=== PATIENT | male | born 1965 | race Caucasian/White ===

== ENCOUNTER → 2019-12-05 | Outpatient (CLI) | payer BC ==
--- NOTE | 2019-12-05 22:09 | CONS ---
CONSULTATION DATE OF SERVICE: 12/05/2019 54-year-old gentleman who has been evaluated in the Sleep Center for possible obstructive sleep apnea-hypopnea syndrome. HISTORY OF PRESENT ILLNESS/SLEEP WAKE EVALUATION: Patient's usual sleep schedule on working days from around 10:00 pm until 6 a.m. and on weekends from 10 p.m. to 7 a.m. No problems with falling asleep. No TV in bedroom. Patient usually sleeps on the side position. According to his . He has loud snoring and has episodes of stopped breathing during sleep. He wakes up from sleep once with nocturia. No history of hypnagogic hallucinations, sleep paralysis or cataplexy. Sometimes the patient feels that his mouth is dry during the sleep, possibly he opens his mouth during the sleep. He drinks 2 caffeinated beverages in the morning. He usually does not take any naps. [place] Sleepiness Scale is 7. PAST MEDICAL HISTORY: Positive for hyperlipidemia, anxiety, hypothyroidism. PAST SURGICAL HISTORY: None. SOCIAL HISTORY: Negative for smoking. Alcohol consumption occasional. FAMILY HISTORY: Positive for sleep apnea by his mother, heart problems, thyroid problems in the family. MEDICATIONS: Simvastatin, citalopram, levothyroxine. REVIEW OF SYSTEMS: Some awakenings from sleep, sometimes feeling sleepy during the day as the passenger on the car or afternoon after lunch. PHYSICAL EXAM: gentleman without distress. BP 128/67, HR 62, RR 16, height 6 feet and 1/3 inches, weight 231 pounds. Body mass index 31.0, temperature 97.7, oxygen saturation at room air 96%. Oropharynx: Low position of soft palate, Mallampati 3, wide pillars, wide neck 18.5 inches in circumference. Nose symmetric. Possibly nasal septum deviation. NECK: Supple, no JVD. Thyroid is not palpable. LUNGS: Clear to percussion and to auscultation. Good air exchange. No wheezing or rhonchi. HEART: S1, S2 regular. No murmurs, gallops, or rubs. ABDOMEN: Obese. Soft and nontender. Bowel sounds are present. No organomegaly appreciated. EXTREMITIES: No clubbing or cyanosis. RUBBER GOODS INSPECTOR TESTER: Awake, alert, and oriented X3. Cranial nerves 2 to 7 intact. There is no fasciculation or atrophy. noted. No focal deficits observed. IMPRESSION: 1. Snoring, witnessed episodes of stopped breathing during sleep. Small oropharyngeal air space. Wide neck; obstructive sleep apnea-hypopnea syndrome. 2. Obesity, BMI 31.0. 3. History of anxiety. 4. Hyperlipidemia. 5. Hypothyroidism. 6. Some asymmetry of the nose, possibly nasal septum deviation. PLAN: 1. Polysomnography for evaluation of patient's breathing during sleep. 2. CPAP/BiPAP titration if sleep study confirms obstructive sleep apnea-hypopnea syndrome. 3. Preferable position during sleep on the side. 4. No driving if patient feels any sleepiness. 5. I will see patient for follow up visit to explain results of testing and following plan. Thank you very much for referring this patient for consultation. Sincerely, Charan Lamb MD, PhD, FAASM Diplomat of [place] [employer] Specialties [place] Board of Internal Medicine Archives Director of [facility] [place] MMODL / FOREIGNN: [phone] /
== END | disposition home or self-care (01) ==
LOC: SLEEP 14:30
PROVIDERS: ATTEND Internal Medicine
DX: G47.33 Obstructive sleep apnea (adult) (pediatric) (principal); E66.9 Obesity, unspecified; E78.5 Hyperlipidemia, unspecified; E03.9 Hypothyroidism, unspecified; Q30.8 Other congenital malformations of nose; Z68.31 Body mass index [BMI] 31.0-31.9, adult; Z86.59 Personal history of other mental and behavioral disorders; Z79.890 Hormone replacement therapy; Z79.899 Other long term (current) drug therapy
CPT/HCPCS: 99211

== ENCOUNTER → 2020-07-02 | Outpatient (CLI) | payer BC ==
--- NOTE | 2020-07-02 23:04 | SFUN ---
SLEEP CENTER FOLLOW UP NOTE DATE OF SERVICE: 07/02/2020 This patient is a 55-year-old gentleman who has been followed in Sleep Center for treatment of obstructive sleep apnea-hypopnea syndrome. Recently the patient had a sleep study which showed extremely severe obstructive sleep apnea. Then the patient had CPAP titration and was started on treatment with CPAP. Today is his first visit on treatment with CPAP. He reported that he feels better with the machine, sleeps better, feels better during the day. [place] Sleepiness Scale is 4, which is normal. I checked his CPAP unit. CPAP pressure is 11 cm of water. Usage is /30 nights; 17/30 nights for more than 4 hours, with average usage 5.3 hours per night. Leak is 17 L/minute, which is borderline. Apnea-hypopnea index was 2.8, which is in normal range. MEDICATIONS: Simvastatin, levothyroxine, citalopram. PHYSICAL EXAMINATION: GENERAL: A pleasant patient in no distress. VITAL SIGNS: BP 118/74, HR 76, RR 16, weight 237, temperature 98.0, oxygen saturation at room air 97%. HEENT: PERRLA, EOMI. Evaluation of oropharynx showed tongue protrudes midline. low position of soft palate. NECK: Supple. No JVD. Thyroid is not palpable. LUNGS: Clear to percussion and to auscultation. Good air exchange. No wheezing or rhonchi. HEART: S1, S2 regular. No murmurs, gallops or rubs. ABDOMEN: Obese. EXTREMITIES: No clubbing or cyanosis. GUIDANCE DIRECTOR: Awake, alert, and oriented X3. Cranial nerves 2 to 7 intact. There is no fasciculation or atrophy. noted. No focal deficits observed. IMPRESSION: 1. Extremely severe obstructive sleep apnea-hypopnea syndrome with central apneas, controlled with CPAP at 11 cm of water. 2. Obesity. 3. Periodic limb movements during titration. Presently no complaints of leg movements. 4. Hyperlipidemia. 5. Hypothyroidism. 6. History of anxiety. PLAN: 1. Patient will continue to use PAP equipment every night for the whole night. 2. Sleep hygiene with regular time in bed for at least 7-1/2 to 8 hours. 3. Precautions related to driving. No driving if feeling sleepiness. 4. I will maintain all necessary prescription for PAP supplies including mask, tube, filters. 5. Watching weight. 6. No driving if feeling sleepiness. 7. Follow-up visit in 6 months or earlier if patient has any problems. Thank you very much for allowing me to participate in the management of your patient. Sincerely, Charan Lamb MD, PhD, FAASM Diplomat of [place] [employer] Specialties [employer] Board of Internal Medicine Steel Wheel Engraver of [facility] [place] MMNAOMIEL / PETER: [id number] /
== END | disposition home or self-care (01) ==
LOC: SLEEP 14:08
PROVIDERS: ATTEND Internal Medicine
DX: G47.33 Obstructive sleep apnea (adult) (pediatric) (principal); G47.61 Periodic limb movement disorder; Z99.89 Dependence on other enabling machines and devices; E66.9 Obesity, unspecified; E78.5 Hyperlipidemia, unspecified; E03.9 Hypothyroidism, unspecified; Z86.59 Personal history of other mental and behavioral disorders

== ENCOUNTER → 2020-12-31 | Outpatient (CLI) | payer BC ==
--- NOTE | 2020-12-31 20:00 | SFUN ---
SLEEP CENTER FOLLOW UP NOTE DATE OF SERVICE: 12/31/2020 This 55-year-old gentleman has been followed in Sleep Center for treatment of obstructive sleep apnea-hypopnea syndrome. The patient has extremely severe sleep apnea and he continues to use his CPAP equipment every night for the whole night. No snoring with the machine. [place] Sleepiness Scale today is 7, which is normal. I checked his CPAP unit. CPAP pressure is 11 cm of water, usage 29/30 nights for more than 4 hours, average 6.3 hours per night. Leak is 11 L/minute, which is acceptable. Apnea-hypopnea index is 2.3, which is normal. MEDICATIONS: Simvastatin, levothyroxine, citalopram. PHYSICAL EXAMINATION: GENERAL: A pleasant patient in no distress. VITAL SIGNS: BP 126/74, HR 58, RR 18, height 6 feet 1 inch, weight 236, BMI 31.1, temperature 98.1, oxygen saturation at room air 95%. HEENT: PERRLA, EOMI. Evaluation of oropharynx showed tongue protrudes midline. Low position of soft palate. NECK: Supple. No JVD. Thyroid is not palpable. LUNGS: Clear to percussion and to auscultation. Good air exchange. No wheezing or rhonchi. HEART: S1, S2 regular. No murmurs, gallops or rubs. ABDOMEN: Slightly obese. EXTREMITIES: No clubbing or cyanosis. MATHEMATICS PROFESSOR: Awake, alert, and oriented X3. Cranial nerves 2 to 7 intact. There is no fasciculation or atrophy. noted. No focal deficits observed. IMPRESSION: 1. Obstructive sleep apnea-hypopnea syndrome. The patient demonstrated close to 100% compliance with treatment, benefitting from treatment. 2. Obesity. 3. Hypothyroidism. 4. Hyperlipidemia. 5. History of anxiety. 6. Periodic limb movements during titration. Clinically no symptoms of periodic limb movements at the present time. PLAN: 1. Patient will continue to use PAP equipment every night for the whole night. 2. Sleep hygiene with regular time in bed for at least 7-1/2 to 8 hours. 3. Precautions related to driving. No driving if feeling sleepiness. 4. I will maintain all necessary prescription for PAP supplies including mask, tube, filters. 5. Watching weight. 6. No driving if feeling sleepiness. 7. Follow-up visit in 6 months or earlier if patient has any problems. Thank you very much for allowing me to participate in the management of your patient. Sincerely, Charan Lamb MD, PhD, FAASM Diplomat of [place] Board of Medical Specialties [employer] Board of Internal Medicine Lode Miner of [facility] [place] ANASTASIIA / PETER: [phone] /
== END | disposition home or self-care (01) ==
LOC: SLEEP 10:57
PROVIDERS: ATTEND Internal Medicine
DX: G47.33 Obstructive sleep apnea (adult) (pediatric) (principal); E66.9 Obesity, unspecified; E03.9 Hypothyroidism, unspecified; G47.61 Periodic limb movement disorder; E78.5 Hyperlipidemia, unspecified; Z79.890 Hormone replacement therapy; Z86.59 Personal history of other mental and behavioral disorders; Z79.899 Other long term (current) drug therapy; Z99.89 Dependence on other enabling machines and devices

== ENCOUNTER → 2021-07-15 | Outpatient (CLI) | payer BC ==
--- NOTE | 2021-07-15 12:13 | SFUN ---
SLEEP CENTER FOLLOW UP NOTE DATE OF SERVICE: 07/15/2021 INTERVAL HISTORY: A 56-year-old gentleman has been followed in the Sleep Center for treatment of obstructive sleep apnea-hypopnea syndrome. The patient continues to use CPAP equipment every night for the whole night according to patient, replacing his supplies on time. [place] Sleepiness Scale today is 9 which is close to border. I checked CPAP unit. Pressure is 11 cm of water. Usage is 26/30 nights and 20/30 nights for more than 4 hours with average usage 5.5 hours per night. Leak is 7 L/minute which is perfect. Apnea-hypopnea index is only 1.5 per hour which is absolutely normal. MEDICATIONS: Simvastatin, levothyroxine, citalopram. PHYSICAL EXAMINATION: GENERAL: Patient in no distress. BP 120/80, HR 80, RR 15, height 6 feet 1 inch, weight 240. Patient increased his weight 4 pounds compared to the previous visit. Body mass index 31.6, temperature 97.7, oxygen saturation at room air 97%. Oropharynx: Low position of soft palate. NECK: Supple, no JVD. Thyroid is not palpable. LUNGS: Clear to percussion and to auscultation. Good air exchange. No wheezing or rhonchi. HEART: S1, S2 regular. No murmurs, gallops, or rubs. ABDOMEN: Slightly obese. Soft and nontender. Bowel sounds are present. No organomegaly appreciated. EXTREMITIES: No clubbing or cyanosis. HOME DEPOT REP: Awake, alert, and oriented X3. Cranial nerves 2 to 7 intact. There is no fasciculation or atrophy. noted. No focal deficits observed. IMPRESSION: 1. Obstructive sleep apnea-hypopnea syndrome. Patient demonstrated good compliance with treatment benefitting from treatment. Extremely severe sleep apnea. 2. Obesity. 3. Hypothyroidism. 4. Hyperlipidemia. 5. History of anxiety. 6. Periodic limb movements have been documented during titration. No clinical signs of problems. PLAN: 1. Patient will continue to use PAP equipment every night for the whole night. 2. Sleep hygiene with regular time in bed for at least 7-1/2 to 8 hours. 3. Precautions related to driving. No driving if feeling sleepiness. 4. I will maintain all necessary prescription for PAP supplies including mask, tube, filters. 5. Watching weight. 6. Follow-up visit in 6 months or earlier if patient has any problems. I spent with the patient and documentation 30 minutes. Thank you very much for allowing me to participate in management of your patient. Sincerely, Charan Lamb MD, PhD, FAASM Diplomat of [place] [employer] Specialties Sleep Medicine Board of [place] Board of Internal Medicine Optical Sales Associate of [facility] [place] ANASTASIIA / PETER: [phone] /
== END ==
LOC: SLEEP 10:26
PROVIDERS: ATTEND Internal Medicine
DX: G47.33 Obstructive sleep apnea (adult) (pediatric) (principal); E66.9 Obesity, unspecified; E03.9 Hypothyroidism, unspecified; E78.5 Hyperlipidemia, unspecified; F41.9 Anxiety disorder, unspecified; G47.61 Periodic limb movement disorder; Z99.89 Dependence on other enabling machines and devices; Z79.899 Other long term (current) drug therapy; Z68.31 Body mass index [BMI] 31.0-31.9, adult

== ENCOUNTER → 2022-02-03 | Outpatient (CLI) | payer BC ==
--- NOTE | 2022-02-03 15:32 | SFUN ---
SLEEP CENTER FOLLOW UP NOTE DATE OF SERVICE: 02/03/2022 57-year-old gentleman has been followed in Sleep Center for treatment of obstructive sleep apnea-hypopnea syndrome. The patient continues to use CPAP equipment every night, getting his CPAP supplies in time. [place] Sleepiness Scale today is 8 which is in normal range. I checked his CPAP unit. Condition of air filter is normal on CPAP pressure 11 cm of water. Usage is 29/30 nights and 28/30 nights more than 4 hours per night. Average 6.7 hours per night. Leak is 8 L/minute, which is normal range apnea-hypopnea index is 1.9, which is normal. The patient keeps water which left after usage machine in the morning in humidifier and also he is using cleaning system for the machine. MEDICATIONS: Levothyroxine and simvastatin and Citalopram. PHYSICAL EXAMINATION: GENERAL: Patient in no distress. BP 134/81, HR 66, RR 16, height 6 feet 1 inch, weight 248.2 pounds, temperature 97.1, oxygen saturation at room air 97%. Oropharynx: Low position of soft palate. NECK: Supple, no JVD. Thyroid is not palpable. LUNGS: Clear to percussion and to auscultation. Good air exchange. No wheezing or rhonchi. HEART: S1, S2 regular. No murmurs, gallops, or rubs. ABDOMEN: Obese. Soft and nontender. Bowel sounds are present. No organomegaly appreciated. EXTREMITIES: No clubbing or cyanosis. PROFESSOR IN FAMILY STUDIES: Awake, alert, and oriented X3. Cranial nerves 2 to 7 intact. There is no fasciculation or atrophy. noted. No focal deficits observed. IMPRESSION: 1. Obstructive sleep apnea-hypopnea syndrome. The patient demonstrated great compliance with treatment. Normal respiration on CPAP. The patient keeps water in humidifier chamber after usage of the machine, which is wrong. 2. Obesity. 3. Hyperlipidemia. 4. Hypothyroidism. 5. History of anxiety. 6. History of documented periodic limb movements during the sleep study. No complaints on periodic limb movements or clinical symptoms at the present time. PLAN: 1. I discussed again in details necessity to take off all water from humidifier in the morning and letting holes to be dry also. 2. Cleaning of mask and chamber with soap and water. There is some questions about negative effect of cleaning systems for the CPAP unit. The patient was recommended to hold off using cleaning systems. 3. Patient will continue to use PAP equipment every night for the whole night. 4. Sleep hygiene with regular time in bed for at least 7-1/2 to 8 hours. 5. Precautions related to driving. No driving if feeling sleepiness. 6. I will maintain all necessary prescription for PAP supplies including mask, tube, filters. 7. Watching weight. 8. Follow-up visit in 6 months or earlier if patient has any problems. Thank you very much for allowing me to participate in management of your patient. Sincerely, Charan Lamb MD, PhD, FAASM Diplomat of [place] Board of Medical Specialties Sleep Medicine Board of [place] Board of Internal Medicine Track Announcer of [facility] [place] MMMAURICIO / FOREIGNN: [phone] /
== END ==
LOC: SLEEP 09:59
PROVIDERS: ATTEND Internal Medicine
DX: G47.33 Obstructive sleep apnea (adult) (pediatric) (principal); E78.5 Hyperlipidemia, unspecified; E03.9 Hypothyroidism, unspecified; F41.9 Anxiety disorder, unspecified; G47.61 Periodic limb movement disorder; Z99.89 Dependence on other enabling machines and devices

== ENCOUNTER → 2022-09-21 | Outpatient (CLI) | payer BC ==
--- NOTE | 2022-09-21 11:06 | P.PN ---
Subjective DATE: 09/21/2022 FOLLOW UP VISIT. Patient with obstructive sleep apnea hypopnea syndrome return to sleep center for follow-up visit. Information from previous visit have been reviewed. Patient is using PAP equipment every night for the whole night, getting PAP supplies in time. The patient does not have significant problems with the mask, PAP unit and humidification. [place] sleepiness scale is 8. I checked information from PAP unit. PAP unit pressure 11 cm H2O. Usage is 100 % for more then 4 hours, average 7.4 hours per night. Leak is 7 l/m, which is in acceptable range. Apnea Hypopnea Index is 1.9, which is perfect. MEDICATIONS:1. Simvastatin 2. Citalopram 3. Levothyroxine During physical exam: GENERAL: A pleasant patient without any distress. VITAL SIGNS: BP 135/67, HR 84, RR 16 , weight 247, temperature 97.7, height 6 foot half inch, body mass index 33, oxygen saturation at room air 97 % . HEENT: PERRLA, EOMI.low position of soft palate, Mallapati 3 . NECK: Supple. No JVD. LUNGS: Clear to percussion and to auscultation. Good air exchange. No wheezing or rhonchi. HEART: S1, S2 regular. ABDOMEN: Soft and nontender.[] EXTREMITIES: No clubbing or cyanosis. SHOP FIRER/FIREMAN: Awake, alert, and oriented x3. No focal deficit. Impressions: 1. Obstructive sleep apnea-hypopnea syndrome. Patient demonstrated great compliance with treatment, benefiting from treatment. 2. Mild obesity. 3. Anxiety. 4. Hyperlipidemia. 5. Hypothyroidism. 6. History of periodic leg movements by results of sleep study, no complaints of the present time. Plan: 1. Continue using PAP equipment every night for the whole night. 2. To change air filter at least 1-2 times per month. 3. PAP unit should stay lower then position of the head. 4. Advised patient to remove all remaining water from humidifier canister daily and make it dry after each usage. Refill canister with fresh distilled water before each usage. 5. Sleep hygiene with regular time in bed for at least 8 hours. 6. Precautions related to driving. No driving if feel any sleepiness. 7. I will maintain prescription for PAP supplies including mask, tube, filters. 8. Follow up visit in 6 months or earlier if patient has any problems. 9. Watching and losing weight. Thank you very much for allowing me to participate in the management of your patient. Charan Lamb MD, PhD, FAASM. Diplomat of [place] Board of Sleep Medicine, Sleep Medicine Board by [place] Board of Internal Medicine Internal Audit Manager of [facility] [place]
== END | disposition home or self-care (01) ==
LOC: SLEEP 10:08
PROVIDERS: ATTEND Internal Medicine
DX: G47.33 Obstructive sleep apnea (adult) (pediatric) (principal); E78.5 Hyperlipidemia, unspecified; E66.9 Obesity, unspecified; F41.9 Anxiety disorder, unspecified; E03.9 Hypothyroidism, unspecified
CPT/HCPCS: 99212

== ENCOUNTER → 2023-07-26 | Outpatient (CLI) | payer BC ==
--- NOTE | 2023-07-26 17:48 | P.PN ---
Subjective DATE: 07/26/2023 FOLLOW UP VISIT. Patient with obstructive sleep apnea hypopnea syndrome return to sleep center for follow-up visit. Information from previous visit have been reviewed. Patient is using PAP equipment every night for the whole night, getting PAP supplies in time. The patient does not have significant problems with the mask, PAP unit and humidification. [place] sleepiness scale is borderline 11. I checked information from PAP unit. PAP unit pressure 11 cm H2O. Usage is 87% and 83 % for more then 4 hours, average 7 hours per night. Leak is 6.6 l/m, which is in acceptable range. Apnea Hypopnea Index is 2.9, which is normal. MEDICATIONS:1. Simvastatin 2. Levothyroxine During physical exam: GENERAL: A pleasant patient without any distress. VITAL SIGNS: BP 127/77, HR 80, RR 16, weight 253.8, temperature 97.6, oxygen saturation at room air 96 % . HEENT: PERRLA, EOMI.low position of soft palate, Mallapati 3 . NECK: Supple. No JVD. LUNGS: Clear to percussion and to auscultation. Good air exchange. No wheezing or rhonchi. HEART: S1, S2 regular. ABDOMEN: Soft and nontender.[] EXTREMITIES: No clubbing or cyanosis. MANAGEMENT PSYCHOLOGIST: Awake, alert, and oriented x3. No focal deficit. Impressions: 1. Obstructive sleep apnea-hypopnea syndrome. Patient demonstrated great compliance with treatment, benefiting from treatment. 2. History of anxiety. 3. Hyperlipidemia. 4. Hypothyroidism. 5. Mild obesity BMI 34.3. 6. History of periodic limb movements, no clinical problems. Plan: 1. Continue using PAP equipment every night for the whole night. 2. To change air filter at least 1-2 times per month. 3. PAP unit should stay lower then position of the head. 4. Advised patient to remove all remaining water from humidifier canister daily and make it dry after each usage. Refill canister with fresh distilled water before each usage. 5. Sleep hygiene with regular time in bed for at least 8 hours. 6. Precautions related to driving. No driving if feel any sleepiness. 7. I will maintain prescription for PAP supplies including mask, tube, filters. 8. Watching and losing weight. 9. Follow up visit in 6 months or earlier if patient has any problems. Thank you very much for allowing me to participate in the management of your patient. Charan Lamb MD, PhD, FAASM. Diplomat of [place] Board of Sleep Medicine, Sleep Medicine Board by [place] Board of Internal Medicine Sample Washer of [facility] [place]
== END ==
LOC: 3 N SLEEP 15:10
PROVIDERS: ATTEND Internal Medicine
DX: G47.33 Obstructive sleep apnea (adult) (pediatric) (principal); G47.61 Periodic limb movement disorder; E03.9 Hypothyroidism, unspecified; F41.9 Anxiety disorder, unspecified; E78.5 Hyperlipidemia, unspecified; E66.9 Obesity, unspecified; Z68.34 Body mass index [BMI] 34.0-34.9, adult; Z99.89 Dependence on other enabling machines and devices; Z79.890 Hormone replacement therapy
CPT/HCPCS: 99212

== ENCOUNTER → 2024-01-31 | Outpatient (CLI) | payer BC ==
--- NOTE | 2024-01-31 12:00 | P.PN ---
Subjective DATE: 01/31/2024 FOLLOW UP VISIT. Patient with obstructive sleep apnea hypopnea syndrome return to sleep center for follow-up visit. Information from previous visit have been reviewed. Patient is using PAP equipment every night for the whole night, getting PAP supplies in time. The patient does not have significant problems with the mask, PAP unit and humidification. [place] sleepiness scale is 7, which is normal. I checked information from PAP unit. PAP unit pressure 11 cm H2O. Usage is 100 % for more then 4 hours, average 7.2 hours per night. Leak is 8 l/m, which is in acceptable range. Apnea Hypopnea Index is 2.7, which is normal. MEDICATIONS:1. Simvastatin 40 mg once a day 2. Citalopram 20 mg once a day 3. Levothyroxine 137 g once a day During physical exam: GENERAL: A pleasant patient without any distress. VITAL SIGNS: BP 127/78, HR 64, RR 16 , weight 255, temperature 97.5, oxygen saturation at room air 96 % . HEENT: PERRLA, EOMI.low position of soft palate, Mallapati 3 . NECK: Supple. No JVD. LUNGS: Clear to percussion and to auscultation. Good air exchange. No wheezing or rhonchi. HEART: S1, S2 regular. ABDOMEN: Soft and nontender.[] EXTREMITIES: No clubbing or cyanosis. PACKAGING MACHINE OPERATOR: Awake, alert, and oriented x3. No focal deficit. Impressions: 1. Obstructive sleep apnea-hypopnea syndrome. Patient demonstrated great compliance with treatment, benefiting from treatment. 2. History of anxiety. 3. Hypothyroidism. 4. Hyperlipidemia. 5. History of periodic limb movements, no complaints of the present time. 6. Mild obesity. Plan: 1. Continue using PAP equipment every night for the whole night. 2. To change air filter at least 1-2 times per month. 3. PAP unit should stay lower then position of the head. 4. Advised patient to remove all remaining water from humidifier canister daily and make it dry after each usage. Refill canister with fresh distilled water before each usage. 5. Sleep hygiene with regular time in bed for at least 8 hours. 6. Precautions related to driving. No driving if feel any sleepiness. 7. I will maintain prescription for PAP supplies including mask, tube, filters. 8. Follow up visit in 6 months or earlier if patient has any problems. 9. Watching and losing weight. Thank you very much for allowing me to participate in the management of your patient. Charan Lamb MD, PhD, FAASM. Diplomat of [place] Board of Sleep Medicine, Sleep Medicine Board by [place] Board of Internal Medicine Jockey Valet of [facility] [place]
== END ==
LOC: 3 N SLEEP 10:51
PROVIDERS: ATTEND Internal Medicine
DX: G47.33 Obstructive sleep apnea (adult) (pediatric) (principal); F41.9 Anxiety disorder, unspecified; E03.9 Hypothyroidism, unspecified; E78.5 Hyperlipidemia, unspecified; E66.9 Obesity, unspecified; Z79.890 Hormone replacement therapy; Z79.899 Other long term (current) drug therapy; Z99.89 Dependence on other enabling machines and devices; Z85.820 Personal history of malignant melanoma of skin
CPT/HCPCS: 99212

== ENCOUNTER → 2024-10-17 | Outpatient (CLI) | payer BC ==
[2024-10-17 14:24] VITALS: BP 118/78; PULSE 98; RESP 20; TEMP 98
--- NOTE | 2024-10-17 14:40 | P.PROGSL ---
Subjective DATE: 10/17/2024 FOLLOW UP VISIT. Patient with obstructive sleep apnea hypopnea syndrome return to sleep center for follow-up visit. Information from previous visit have been reviewed. Patient is using PAP equipment every night for the whole night, getting PAP supplies in time. The patient does not have significant problems with the mask, PAP unit and humidification. [place] sleepiness scale is 7, which is normal. I checked information from PAP unit. PAP unit pressure 11 cm H2O. Usage is 100% for more then 4 hours, average 7.3 hours per night. Leak is 8 l/m, which is in acceptable range. Apnea Hypopnea Index is 2.2, which is normal. MEDICATIONS have been reviewed, please see below. During physical exam: GENERAL: A pleasant patient without any distress. VITAL SIGNS: Please see below, weight is 254 lbs. HEENT: PERRLA, EOMI.low position of soft palate, [place] 3. NECK: Supple. No JVD. LUNGS: Clear to percussion and to auscultation. Good air exchange. No wheezing or rhonchi. HEART: S1, S2 regular. ABDOMEN: Soft and nontender.[] EXTREMITIES: No clubbing or cyanosis. MATERIALS HANDLING COORDINATOR: Awake, alert, and oriented x3. No focal deficit. Impressions: 1. Obstructive sleep apnea-hypopnea syndrome. Patient demonstrated great compliance with treatment, benefiting from treatment. 2. Mild obesity, BMI 34.4, no significant changes of weight since previous visit. 3. Hypothyroidism. 4. Hyperlipidemia. 5. History of anxiety. 6. History of periodic limb movements, no complaints at the present time. Plan: 1. Continue using PAP equipment every night for the whole night. 2. Sleep hygiene with regular time in bed for at least 7.5-8 hours 3. PAP unit should stay lower then position of the head. 4. Advised patient to remove all remaining water from humidifier canister daily and make it dry after each usage. Refill canister with fresh distilled water before each usage. 5. Watching and losing weight. 6. Precautions related to driving. No driving if feel any sleepiness. 7. I will maintain prescription for PAP supplies including mask, tube, filters. 8. Follow up visit in 8 months or earlier if patient has any problems. Thank you very much for allowing me to participate in the management of your patient. Charan Lamb MD, PhD, FAASM. Diplomat of [employer], Sleep Medicine Board by [employer] Client Care Coordinator of [facility] [place] Objective - Vital Signs Vital Signs: Vital Signs Temp 98 F 10/17/24 14:23 Pulse 98 10/17/24 14:23 Resp 20 10/17/24 14:23 BP 118/78 10/17/24 14:23 Pulse Ox 97 10/17/24 14:23 FiO2 Intake & Output 10/16/24 10/17/24 10/17/24 18:59 06:59 18:59 Weight 115.212 kg Home Medications: Home Medications Medication Instructions Recorded Confirmed Type Citalopram Hydrobromide 20 mg PO DAILY 10/17/24 10/17/24 History [Citalopram HBr] Levothyroxine Sodium 137 mcg PO DAILY 10/17/24 10/17/24 History Simvastatin [Zocor] 40 mg PO DAILY 10/17/24 10/17/24 History
== END ==
LOC: 3 N SLEEP 14:02
PROVIDERS: ATTEND Internal Medicine
DX: G47.33 Obstructive sleep apnea (adult) (pediatric) (principal); E66.9 Obesity, unspecified; E03.9 Hypothyroidism, unspecified; E78.5 Hyperlipidemia, unspecified; F41.9 Anxiety disorder, unspecified; Z99.89 Dependence on other enabling machines and devices; Z87.39 Personal history of other diseases of the musculoskeletal system and connective tissue; Z68.34 Body mass index [BMI] 34.0-34.9, adult; Z79.890 Hormone replacement therapy
CPT/HCPCS: 99212